=== PATIENT | female | born 1985 | race Caucasian/White ===

== ENCOUNTER 2017-08-03 14:25 | Emergency (ER) | payer MEDICAID, OTHER ==
[~2017-08-03] VITALS: Ht 175.3 cm; Wt 98.9 kg
[2017-08-03 14:39] VITALS: BP 130/81
[2017-08-03] MEDS ORDERED: KETOROLAC TROMETH 60MG/2ML VIAL IM ONE (15:30)
[2017-08-03] MEDS ORDERED: HYDROcodone-ACET 5/325MG TAB PO ONE (15:30)
== END 2017-08-03 16:24 | disposition home or self-care (01) ==
LOC: ER 14:25
DX: S60.211A Contusion of right wrist, initial encounter (principal); Z88.1 Allergy status to other antibiotic agents; W23.0XXA Caught, crushed, jammed, or pinched between moving objects, initial encounter; Y93.89 Activity, other specified; Y92.89 Other specified places as the place of occurrence of the external cause; Y99.8 Other external cause status
CPT/HCPCS: 73090; 96372; 99284; J1885